=== PATIENT | male | born 2000 | race African-American/Black ===

== ENCOUNTER 2019-07-08 03:21 | Emergency (ER) | payer OTHER ==
[~2019-07-08] VITALS: Ht 175.3 cm; Wt 72.7 kg
[2019-07-08] MEDS ORDERED: NS 1,000 ML IV ONE (04:00)
[2019-07-08] MEDS ORDERED: METOCLOPRAMIDE INJ 10MG/2ML VIAL (J2765) IV ONE (04:00)
[2019-07-08 04:02] LABS: BASO # 0.1 10^3/uL (0.0-0.2); BASO % 1.1 % (0.0-1.0); EOS # 0.2 10^3/uL (0.0-0.5); EOS % 2.1 % (0.0-3.0); HEMATOCRIT 40.5 % (42.0-52.0); HEMOGLOBIN 14.3 g/dl (13.5-17.5); LYMPH # 2.2 10^3/uL (1.5-5.0); LYMPH % 31.1 % (24.0-44.0); MEAN CORPUSCULAR HEMOGLOBIN 26.6 pg (27.0-33.0); MEAN CORPUSCULAR HGB CONC 35.3 g/dl (32.0-36.5); MEAN CORPUSCULAR VOLUME 75.4 fl (80.0-96.0); MONO # 0.7 10^3/uL (0.0-0.8); MONO % 9.4 % (0.0-5.0); NEUTROPHILS # 4.1 10^3/uL (1.5-8.5); NEUTROPHILS % 56.2 % (36.0-66.0); PLATELET COUNT, AUTOMATED 219 10^3/uL (150-450); RED BLOOD COUNT 5.37 10^6/uL (4.30-6.10); WHITE BLOOD COUNT 7.2 10^3/uL (4.0-10.0)
[2019-07-08 04:31] LABS: BLOOD UREA NITROGEN 10 MG/DL (7-18); CALCIUM LEVEL 9.2 MG/DL (8.5-10.1); CARBON DIOXIDE LEVEL 28 MEQ/L (21-32); CHLORIDE LEVEL 105 MEQ/L (98-107); CREATININE FOR GFR 1.03 MG/DL (0.70-1.30); GLUCOSE, FASTING 76 MG/DL (70-100); POTASSIUM SERUM 3.6 MEQ/L (3.5-5.1); SODIUM LEVEL 139 MEQ/L (136-145)
[2019-07-08] MEDS ORDERED: KETOROLAC 30 MG/ML VIAL (J1885) IV ONE (04:45)
[2019-07-08 05:55] VITALS: BP 149/74
== END 2019-07-08 05:57 | disposition home or self-care (01) ==
LOC: M ED 03:21
DX: R51 Headache (principal); R11.2 Nausea with vomiting, unspecified
CPT/HCPCS: 80048; 85025; 96361; 96374; 96375; 99284; J1885; J2765

== ENCOUNTER 2020-04-28 13:30 | Emergency (ER) | payer OTHER | END 2020-04-28 15:37 | disposition home or self-care (01) | LOC: M ED 13:30 | DX: S39.012A Strain of muscle, fascia and tendon of lower back, initial encounter (principal); X50.0XXA Overexertion from strenuous movement or load, initial encounter; Y93.02 Activity, running ==

== ENCOUNTER 2020-05-04 17:40 | Emergency (ER) | payer OTHER | END 2020-05-04 20:17 | disposition home or self-care (01) | LOC: M ED 17:40 | DX: M51.37 Other intervertebral disc degeneration, lumbosacral region (principal); Z79.899 Other long term (current) drug therapy ==